=== PATIENT | male | born 1985 | race African-American/Black ===

== ENCOUNTER 2016-04-13 23:49 | Emergency (ER) | payer OTHER ==
--- NOTE | ~2016-04-13 | CR6 ---
[facility] A Service of [facility] & [facility] RADIOLOGY TEXT RESULTS PATIENT: KELLEY AKHTAR LOCATION: [facility] : 84 UNIT #: [id number] AGE: [address]: Arnol Prescott MD SEX: M ORDER DR: [id number] [facility] [address] [facility]. [place], [place] [address] [id number] E MR#: [id number] Acc #: [id number] NAME: KELLEY AKHTAR : 1985 SEX: M STUDY DATE/TIME: 04/13/2016 23:42 UNIT: [facility] ROOM: STUDY DESCRIPTION: CR Abdomen Portable Sng View Attending Physician: Arnol Prescott M.D. Ordering Physician: Ed Angel Cortes M.D. Primary Care Physician: Robin Bowen M.D. MEDICAL IMAGING REPORT This report is preliminary unless electronic signature is present EXAM AP view of the abdomen COMPARISON Acute abdominal series dated March 15, 2016. INDICATIONS 31-year-old male. Confirm percutaneous gastrojejunal tube placement. FINDINGS Contrast was injected via the patient's indwelling percutaneous tube. The tube terminates in expected location of the proximal jejunum, where contrast opacifies the proximal jejunum in the pelvis. No evidence of leak. No acute findings in the lung bases. No evidence of bowel obstruction. Suture material in the right lower quadrant of the abdomen. IMPRESSION Percutaneous GJ tube tip is within the proximal jejunum. No evidence of leak. No evidence of bowel obstruction. Dictated by... Teddy Bates M.D. THIS IS AN ELECTRONICALLY VERIFIED REPORT Teddy Bates M.D. at 04/15/2016 7:43 AM WILLIAM/patrick TD: 04/14/2016 03:24 JOB #: [id number] MEDICAL IMAGING REPORT COPY
[~2016-04-13 23:49] MED LIST: ACETAMINOPHEN PO; ACETAMINOPHEN PR; ATIVAN PO; ATIVAN0.5 MG PO; AUGMENTIN PO; BACTRIM DS TABL1 TA1 PO; CIPRO PO; DICLOFENAC PO; DIFLUCAN PO; DILAUDID PO; DILAUDID4 MG PO; DOCUSATE SODIU100 MG PO; DURAGESIC1 EAC1 TOP; DURAGESIC1 EACH TOP; DURAGESIC75 MCG EXT; FENTANYL1 EAC1 TD; FIORICET 50-321 EACH PO; FLEXERIL10 M1 PO; HYDROCODON-ACE1 EAC9 PO; IBUPROFEN600 MG; KETOPROFEN PO; LEVAQUIN750 MG PO; LORTAB 5/500 TA1 TA1 PO; MIRAPEX; MORPHINE SULFAT15 M3 PO; MULTIVITAMIN W-1 TAB PO; MYLANTA GAS80 M2 PO; NAMENDA10 MG; NAPROSYN-EC500 M1 PO; NAPROSYN250 M1 PO; NO MEDICATIONS; NORCO 7.5-3251 EACH PO; NORCO1 TAB 10/3 PO; OXYCODONE HCL E15 MG PO; OXYCODONE15 M1 PO; PERCOCET 7.5-31 EACH PO; PHENERGAN25 M1 PO; PREDNISONE PO; TOBREX5 ML OS; TYLENOL #3 PO; VOLTAREN50 MG PO; VOLTAREN75 MG PO; ZOFRAN ODT4 MG PO; ZYPREXA10 MG PO; [UNRECOGNIZED DRUG - OTHER]; [UNRECOGNIZED DRUG - OTHER] PO
== END 2016-04-14 01:35 | disposition home or self-care (01) ==
LOC: CED 23:49
DX: R10.9 Unspecified abdominal pain (principal); B37.9 Candidiasis, unspecified; I10 Essential (primary) hypertension
CPT/HCPCS: 74000; 99284

== ENCOUNTER 2016-05-14 22:48 | Emergency (ER) | payer OTHER ==
--- NOTE | ~2016-05-14 | CR4 ---
[facility] A Service of [facility] & [facility] RADIOLOGY TEXT RESULTS PATIENT: KELLEY AKHTAR LOCATION: [facility] : 84 UNIT #: [id number] AGE: [address]: Minerva Diaz MD SEX: M ORDER DR: [id number] [facility] [address] [place], [place] [address] [id number] E MR#: [id number] Acc #: [id number] NAME: KELLEY AKHTAR : 1985 SEX: M STUDY DATE/TIME: 05/14/2016 20:30 UNIT: [facility] ROOM: STUDY DESCRIPTION: CR Abdomen Flat Upright or Dec Attending Physician: Minerva Diaz M.D. Ordering Physician: Minerva Diaz M.D. Primary Care Physician: Robin Bowen M.D. MEDICAL IMAGING REPORT This report is preliminary unless electronic signature is present EXAM Supine upright radiographs of the abdomen and pelvis 05/14/2016 HISTORY Abdominal pain. TECHNIQUE Supine and upright radiographs of the abdomen and pelvis are presented. Comparison 04/13/2016. FINDINGS Lung bases are clear. The bowel gas pattern is normal. There is no evidence of ileus or obstruction. The study is degraded by what appears to be a clothing artifact overlying pelvis. There is what appears to be a gastrojejunal tube in place entering mid stomach with a jejunal component extending into the proximal jejunum. Similar positioning on prior study. On the upright radiograph, there is a ring-shaped metallic density measuring about 2.5 cm in diameter by about 6 mm in thickness superimposed over the left paracentral L4-L5 intervertebral disc space. It is not seen on the supine radiograph and is felt to be extrinsic to the patient. Please correlate clinically. Surgical clips over the abdomen unchanged. No free air. Dictated by... Aric Mcduffie M.D. THIS IS AN ELECTRONICALLY VERIFIED REPORT Aric Mcduffie M.D. at 05/17/2016 6:09 PM NADER/felipe TD: 05/15/2016 15:30 [facility] A Service of [facility] & [facility] RADIOLOGY TEXT RESULTS PATIENT: KELLEY AKHTAR LOCATION: [facility] #: [id number] : [birth year] UNIT #: [id number] AGE: [address]: Minerva Diaz MD SEX: M ORDER DR: JOB #: [id number] MEDICAL IMAGING REPORT Page 1 of 1 COPY
--- NOTE | ~2016-05-14 | CT71 ---
[facility] A Service of [facility] RADIOLOGY TEXT RESULTS PATIENT: KELLEY AKHTAR LOCATION: [facility] : 83 UNIT #: [id number] AGE: [address]: Minerva Diaz MD SEX: M ORDER DR: [id number] [address] [address] [id number] E MR#: [id number] Acc #: [id number] NAME: KELLEY AKHTAR : 1985 SEX: M STUDY DATE/TIME: 05/15/2016 0:31 UNIT: [facility] ROOM: STUDY DESCRIPTION: CT Head Wo Contrast Attending Physician: Minerva Diaz M.D. Ordering Physician: Minerva Diaz M.D. Primary Care Physician: Robin Bowen M.D. MEDICAL IMAGING REPORT This report is preliminary unless electronic signature is present EXAM CT head without contrast 05/15/2016 HISTORY 31-year-old male with headache for [address] head 12/12/2015 TECHNIQUE Routine unenhanced axial images performed through the brain. This CT exam was performed with one or more of the following radiation dose reduction techniques: automatic exposure control, adjustment of mA and/or kV according to patient size, and iterative reconstruction. FINDINGS No hemorrhage, acute infarction, mass lesion, or abnormal extraaxial fluid collection. No midline shift or focal mass effect. Ventricular system normal in size and configuration. No acute bony abnormality. Visualized paranasal sinuses and mastoid air cells are clear. IMPRESSION Negative unenhanced head CT. Dictated by... Kole Daly M.D. THIS IS AN ELECTRONICALLY VERIFIED REPORT Kole Daly M.D. at 05/16/2016 4:39 PM JoshuaKB/to TD: 05/15/2016 16:37 JOB #: [id number] [facility] A Service of [facility] RADIOLOGY TEXT RESULTS PATIENT: KELLEY AKHTAR LOCATION: [facility] : 83 UNIT #: [id number] AGE: [address]: Minerva Diaz MD SEX: M ORDER DR: MEDICAL IMAGING REPORT Page 1 of 1 COPY
[2016-05-14 21:22] LABS: BASOPHIL% 0.5 % (0-2.5); EOSINOPHIL# 0.2 X10e3 (0-0.7); EOSINOPHIL% 3.3 % (0.0-7.0); HEMATOCRIT 31.5 % (38.0-50.0); HEMOGLOBIN 10.3 gm/dL (13.0-16.0); LYMPHOCYTE# 0.9 X10e3 (1.0-3.5); LYMPHOCYTE% 15.4 % (17.0-45.0); MEAN CELL VOLUME 78.7 FL (83-96); MEAN CORPUSCULAR HEMOGLOBIN 25.7 PG (28-34); MEAN CORPUSCULAR HGB CONC 32.6 g/dL (30-36); MEAN PLATELET VOLUME 6.8 FL (6.5-11.5); MONOCYTE# 0.5 X10e3 (0-1.0); MONOCYTE% 8.1 % (3.0-12.0); NEUTROPHIL# 4.3 X10e3 (1.5-7.1); NEUTROPHIL% 72.7 % (40-75); PLATELET COUNT 457 X10e3 (140-420); RED CELL DISTRIBUTION WIDTH 16.4 % (11.0-15.5); WHITE BLOOD COUNT 5.9 X10e3 (4.0-10.5)
[2016-05-14 21:27] LABS: DIFF IND NO
[2016-05-14 21:48] LABS: ALBUMIN SERUM 3.2 g/dL (3.5-5.0); BILIRUBIN, DIRECT 0.1 mg/dL (0.0-0.2); BILIRUBIN,INDIRECT 0.2 mg/dL (0.0-0.9); BILIRUBIN,TOTAL 0.3 mg/dL (0.2-2.0); BUN/CREATININE RATIO 21.66; CREATININE SERUM 0.6 mg/dL (0.6-1.4); GLOM FILT RATE Estimated 154.3 mL/min (>60); PROTEIN TOTAL SERUM 7.4 g/dL (6.0-8.3)
[2016-05-15 00:23] LABS: URINE SOURCE CLEAN CATCH
[2016-05-15 00:30] LABS: URINE APPEARANCE CLOUDY; URINE BILIRUBIN NEG (NEG); URINE BLOOD NEG (NEG); URINE COLOR DK YELLOW; URINE GLUCOSE NEG (NEG); URINE KETONE TRACE (NEG); URINE LEUKOCYTE ESTERASE 1+ (NEG); URINE NITRATE NEG (NEG); URINE PH 5.5 (5-8); URINE PROTEIN TRACE (NEG); URINE SPECIFIC GRAVITY 1.027 (1.003-1.035)
[2016-05-15 00:37] LABS: CULTURE INDICATED? YES; URBCS1 AUWI 0-2 /[HPF] (0-2); URINE BACTERIA AUWI NEG (NEGATIVE); URINE SQUAMOUS EPITHELIAL CELL OCC /[HPF]
[2016-05-15 00:47] LABS: AMPHETAMINE POS (NEG); BARBITURATES NEG (NEG); BENZODIAZEPINES NEG (NEG); COCAINE NEG (NEG); MARIJUANA NEG (NEG); OPIATES POS (NEG); TRICYCLIC ANTIDEPRESSANTS NEG (NEG); U METHADONE NEG (NEG)
== END 2016-05-15 02:10 | disposition home or self-care (01) ==
LOC: CED 22:48
PROVIDERS: Student in an Organized Health Care Education/Training Program
DX: G89.29 Other chronic pain (principal); R10.9 Unspecified abdominal pain; Z88.5 Allergy status to narcotic agent
CPT/HCPCS: 36415; 70450; 74020; 80048; 80076; 80307; 81003; 82150; 83690; 85025; 87086; 96361; 96374; 96375; 99284; J1170; J2550

== ENCOUNTER 2016-06-02 03:42 | Inpatient (IN) | payer OTHER ==
--- NOTE | ~2016-06-02 | DS ---
Unit #: [id number] #: [id number] Patient: KELLEY AKHTAR [id number] [address] [address] [id number] I MR#: [id number] NAME: KELLEY AKHTAR ROOM: 229 Age: 31 Sex: M Admission Date: 06/02/2016 : 1985 Discharge Date: 06/04/2016 Attending Physician: Ines Vazquez M.D. Primary Care Physician: Robin Bowen M.D. DISCHARGE SUMMARY FINAL DIAGNOSES 1. Intractable nausea and vomiting, which is improved. 2. Advanced metastatic colon cancer status post chemo and radiation therapy with persistent disease and progression. 3. Chronic anemia. 4. Abdominal pain secondary to abdominal malignancy,. 5. Gastric outlet partial obstruction status post percutaneous endoscopic gastrotomy placement. DISCHARGE MEDICATIONS 1. Zyprexa 10 mg at bedtime. 2. Oxycodone 15 mg q.4 p.r.n. 3. Fentanyl patch 150 mcg topically q.72 hours. 4. Colace 100 mg b.i.d. 5. Phenergan 25 mg q.4 p.r.n. 6. Continue tube feeds. Hypomagnesemia. Hypokalemia. CEA level is 6.5. Ferritin level 187. RADIOLOGICAL STUDIES DONE DURING HOSPITALIZATION CT scan of the abdomen and pelvis that shows G-tube is present, small amount of fluid around the gallbladder which otherwise appears normal. Very poor evaluation of the bowel. CONSULTATIONS DURING HOSPITALIZATION 1. Dr. Corona from [facility]. 2. Dr. Wu Blake, GI Services. HOSPITAL COURSE The patient was admitted to the hospital with intractable nausea, vomiting. He does have metastatic advanced colon cancer. He had a PEG tube placed in [facility] because of gastric outlet partial obstruction. He was admitted to the hospital. IV pain management was done. The patient's Duragesic patch has been increased to 150 mcg. He is feeling somewhat better. Dr. Corona was consulted. As per Dr. Corona, the patient can be discharged home to follow up on Monday for possible Keytruda treatment. Dr. Wu Blake was also consulted. He advised to continue tube feeds. As per Dr. Blake, the patient needs symptomatic treatment. Potassium was replaced. The patient will be discharged home. Prescription for Fentanyl patch is being written. Plan of care discussed with patient. VITAL SIGNS ON DISCHARGE: Blood pressure 124/68. Respiratory rate 18. Unit #: [id number] #: [id number] Patient: KELLEY AKHTAR Pulse 91. Temperature 98.6. CHEST: Fair air entry, decreased at the bases. CARDIOVASCULAR: Regular rhythm. ABDOMEN: Soft. Tenderness is present. DISCHARGE INSTRUCTIONS 1. The patient is being discharged home. 2. Prescription for Duragesic patch is being written. 3. Follow up with Oncology on Monday for possible treatment. 4. Follow up with primary care provider in one week. 5. Potassium and magnesium level to be done in three to four days. 1. Dictated by... Ines Vazquez M.D. HIMA/melinda TD: 06/05/2016 18:36 JOB #: [id number] DISCHARGE SUMMARY Page 1 of 1 X Ines Vazquez MD X DISCHARGE SUMMARY
--- NOTE | ~2016-06-02 | A ---
[facility] Nutrition Therapy DATE: 06/03/16 Patient: KELLEY AKHTAR Physician: VIV Address: [address] Room/Bed: [address] [place] [address], Zip: [place] [address] Admit Date: 06/02/16 Date of : 84 Height: 6 3 Weight: 130 58.96 NUTRITIONAL ASSESSMENT: REASON: LOW BMI + ENTERAL NUTRITION SUPPORT ASSESSMENT PT IS 31 Y.O. MALE ADMITTED FOR ABD PAIN, VOMITING BLOOD, N/V PMH: STAGE IV COLON CANCER S/P (R) HEMICOLECTOMY, CHEMOTHERAPY & RADIATION, ANEMIA Anthropometrics: 6'3", WT: 130# (59 KG), BMI: 16.2, 66%IBW Labs: BUN: 8, ALB: 2.6 Meds: PROTONIX, COLACE, PHENERGAN, KCL, NACL I/O & Bowel function: 3400/1000 Skin Integrity: NO KNOWN SKIN ISSUES Estimated Nutrition Needs: 4741-0962 KCAL (35-40 KCAL/KG BW) 71-106 G PRO (1.2-1.8 G PRO/KG BW) FLUIDS CONSISTENT W/KCAL NEEDS OR MANAGE PER MD Assessment: CHART REVIEWED AND EVENTS NOTED. PT SEEN FOR LOW BMI + ENTERAL NUTRITION SUPPORT. PT REPORTS FAIR PO INTAKE AND APPETITE, ADDS THAT HIS PO INTAKE IS INCONSISTENT. PT REPORTS WEIGHT LOSS SINCE LAST SEPTEMBER 2015-NOTES UBW IS ~200#. PT WEIGHED ~167# IN DECEMBER 2015, ~149# IN FEBRUARY 2016 AND 145# IN APRIL 2016. THIS RD STRESSED THE IMPORTANCE OF ADEQUATE PROTEIN AND KCAL INTAKE AND WEIGHT GAIN. PT AGREED, REPORTING LIKING ENSURE CLEAR WELL REGULAR ENSURE SHAKES. RD ALSO ENCOURAGED SMALL, FREQUENT MEALS. OF NOTE, PT RECEIVING CLEAR LIQUID DIET + RECEIVING ALTERNATIVE NUTRITION SUPPORT OF JEVITY 1.2 @ 45 ML/HR VIA PEG. PT AND FAMILY REPORTED NO DIET QUESTIONS AT THIS TIME. RD TO FOLLOW. SEE RECOMMENDATIONS BELOW. Dx: MALNUTRITION R/T PMH, CURRENT CONDITION AEB AEB LOW BMI OF 16.2, 66%IBW, ~70# WEIGHT LOSS NOTED SINCE SEPTEMBER 2015. Intervention: 1. CLEAR LIQUID DIET 2. ENSURE CLEAR TID 3. PEG-ENTERAL NUTRITION SUPPORT Monitoring, Evaluation and Goals: 1. ENTERAL NUTRITION; TOLERATE ~80-100% ESTIMATED NUTRIENT NEEDS 2. ORAL INTAKE; TOLERATE >50% OF MEALS AND SUPPLEMENTS W/NO C/O N/V/D 3. WEIGHTS; PROMOTE WEIGHT GAIN; PREVENT FURTHER WEIGHT LOSS [facility] Nutrition Therapy DATE: 06/03/16 Patient: KELLEY AKHTAR Physician: VIV Address: [address] Room/Bed: [address] [place] [address], Zip: [place] [address] Admit Date: 06/02/16 Date of : [birth year] Height: 6 3 Weight: 130 58.96 4. GI; PROMOTE REGULAR GI FUNCTION MONITOR: -PO INTAKE/APPETITE -SUPPLEMENT INTAKE -ENTERAL NUTRITION? -WEIGHTS Recommendations: 1. ORDER ENSURE CLEAR TID W/MEALS 2. ONCE PT ABLE TO TOLERATE PO INTAKE, ADVANCE DIET TO REGULAR + 6 SMALL MEALS 3. PLEASE OBTAIN DAILY WEIGHTS FOR MONITORING PURPOSES 4. IF PT TO CONTINUE TO HAVE MINIMAL PO INTAKE, RECOMMEND TO CHANGE CURRENT ENTERAL NUTRITION SUPPORT TO JEVITY 1.5 @ 20 ML/HR, ADVANCE 10 ML q 8 HOURS TO GOAL RATE OF 60 ML/HR -PROVIDES 2160 KCAL, 92 G PRO, 1094 ML FREE H20 ADD FREE H20 FLUSHES PER MD RD WILL F/U PER PROTOCOL PT IS MOD/SEVERELY COMPROMISED Respectfully, DEMAR REYES MS, RD, LD [facility] cc: client file
--- NOTE | ~2016-06-02 | HP ---
Unit #: [id number] #: [id number] Patient: KELLEY HERNANDEZ [id number] [place], [place] [address] [id number] I MR#: [id number] NAME: KELLEY HERNANDEZ ROOM: 229 Age: 31 Sex: M Admission Date: 06/02/2016 : 1985 Attending Physician: Ines Vazquez M.D. Primary Care Physician: Robin Bowen M.D. HISTORY AND PHYSICAL CHIEF COMPLAINT Intractable nausea and vomiting. HISTORY OF PRESENTING ILLNESS A 31-year-old -Australian male who is very well known to me from multiple admissions has a history of advanced metastatic colon cancer stage IV, status post chemo and radiation therapy with persistent disease and progression, has also received one cycle of Keytruda and he is followed by [facility]. Patient was last admitted in the hospital in March 2016. At that time he was transferred to [facility]. Per patient he had pain blocks done and some surgical procedure done and was discharged home. He went to [facility] just two or three days ago and according to him nothing was done so he went home and came to [facility] and was admitted for intractable nausea and vomiting. According to patient he is not able to eat anything because of vomiting and he thinks that he saw some blood in the vomit, also complaining of abdominal pain which is diffuse abdominal pain. Level of pain is 7-8/10. He does not complain of diarrhea. Actually he does have chronic constipation. Patient is kind of a poor historian and does not really want to communicate much at this time. PAST MEDICAL HISTORY 1. History of advanced metastatic colon cancer status post chemo and radiation therapy with persistent disease and progression. 2. Chronic anemia. 3. Abdominal pain. PAST SURGICAL HISTORY 1. History of hemicolectomy. 2. History of IV port placement and then later removal. 3. History of PEG tube placement which was in March 2016. ALLERGIES No known drug allergies. SOCIAL HISTORY Patient has no history of alcohol abuse or drug abuse. FAMILY HISTORY Unremarkable. HOME MEDICATIONS Unit #: [id number] #: [id number] Patient: KELLEY HERNANDEZ 1. Duragesic patch q.72 h. 2. Phenergan 25 mg q.4 h. p.r.n. 3. Roxicodone 15 mg q.4 h. p.r.n. 4. Olanzapine 10 mg q.h.s. 5. Colace 100 mg b.i.d. REVIEW OF SYMPTOMS As per history of presenting illness. PHYSICAL EXAMINATION GENERAL APPEARANCE: Patient is lying in bed, does not seem to be in any respiratory distress. VITAL SIGNS: Blood pressure is 146/96. Respiratory rate 18. Pulse is 57. Temperature 98.9. Oxygen saturation is 100%. HEENT: Head is normocephalic. Eye movements are normal. Pale conjunctivae. NECK: Neck is supple. CHEST: Has fair air entry, decreased at the bases. CVS: S1, S2 positive, regular rhythm. ABDOMEN: Soft. Tenderness diffuse is present. PEG tube is in place. EXTREMITIES: Negative edema. Pulses are palpable. POST OFFICE MARKUP CLERK: Patient is awake, alert oriented x3. Does not seem to have any focal neurological deficit. DIAGNOSTIC STUDIES LABORATORY WORKUP: WBC 6.1, hemoglobin 10.4, hematocrit 32.4 and platelet count of 433, PT and INR 12.5 and 1.2, sodium 138, potassium 2.8, chloride 93, BUN 16, creatinine 1.0. Liver enzymes are stable; lipase is 22, in normal range. Troponin is less than 0.05. Urinalysis was done which shows trace leukocyte esterase, negative bacteria. Magnesium is 2.2. IMAGING: Study done during ER was CT scan of the abdomen and pelvis which shows G-tube is present, small amount of fluid around the gallbladder which otherwise appears normal. Nothing else acute seen. ASSESSMENT Patient is being admitted to med/surg unit with: 1. Intractable nausea and vomiting. 2. Possible hematemesis. 3. Advanced metastatic colon cancer. 4. Generalized abdominal pain secondary to above. 5. Chronic anemia. PLAN Plan is admit to med/surg unit. Dr. Corona has been consulted. Pain management will be done as per his recommendation. IV Zofran 4 mg q.6 h. p.r.n. is being started for nausea/vomiting. Dr. Wu Blake has been consulted. Patient will have EGD done in the morning. Labs will be repeated again tomorrow morning. IV fluids are going to be started. Patient does have hypokalemia. Potassium will be replaced as per protocol and magnesium level will be obtained and continue on replacement. Plan of care discussed with patient. Will try to get discharge summary from [facility] from March 2016. I did try to call the patient's but she is not receiving any call at this time. I informed Mr. Hernandez also. I will personally talk to her whenever she comes to hospital to visit him. I did discuss about hospice care also. He will talk to his and then decide. Unit #: [id number] #: [id number] Patient: KELLEY HERNANDEZ Dictated by Jefferson Weber/seema TD: 06/02/2016 18:28 JOB #: [id number] HISTORY AND PHYSICAL Page 1 of 1 X Ines Vazquez MD X HISTORY AND PHYSICAL
--- NOTE | ~2016-06-02 | CO ---
Unit #: [id number] #: [id number] Patient: KELLEY HERNANDEZ [id number] [address] [place], [place] [address] [id number] I MR#: [id number] NAME: KELLEY HERNANDEZ ROOM: 229 Age: 31 Sex: M Admission Date: 06/02/2016 : 1985 Attending Physician: Ines Vazquez M.D. Primary Care Physician: Robin Bowen M.D. Consultation Date: 06/02/2016 CONSULTATION REPORT PRIMARY CARE PHYSICIAN Robin Bowen M.D. REASON FOR CONSULTATION Nausea, vomiting, and hematemesis. HISTORY OF PRESENT ILLNESS Mr. Hernandez is an unfortunate 31-year-old gentleman, who has advanced metastatic colon cancer, which is status post right hemicolectomy. Subsequently, the patient was found to have metastatic cancer with masses in the abdomen with partial small bowel obstruction and extrinsic compression on the stomach gastric outlet. The patient was seen by multiple doctors in [facility] as well as by [facility] and clearly has significant problems. He had one cycle of Keytruda at the [facility], but not on any chemotherapy at the present time. Somewhere along the line, he is being treated at [facility] and had a PEG placed. I suspect this is primarily for venting rather than feeding. The patient has a lot of diffuse abdominal pain and seems to be quite depressed and not very engaging. PAST MEDICAL HISTORY Significant for original diagnosis of cecal cancer diagnosed in 09/2015 when he was found to have extensive tumor involving the transverse colon, duodenum, and retroperitoneal structures. PAST SURGICAL HISTORY Included a MediPort placement, hemicolectomy, and a PEG placement. FAMILY HISTORY No significant family history. SOCIAL HISTORY Does not smoke or drink alcohol. and lives at home with his . MEDICATIONS At home included Duragesic, Phenergan, Roxicodone, olanzapine, and Colace. ALLERGIES He is allergic to oxycodone, morphine, and Zofran. REVIEW OF SYSTEMS Detailed review of organ system is significant for fatigue and weakness, nausea, vomiting, possibly hematemesis. Rest of the review of organ Unit #: [id number] #: [id number] Patient: HERNANDEZ,KELLEY DEWANE systems is unremarkable. PHYSICAL EXAMINATION GENERAL: The patient appears quite cachectic and emaciated and depressed and curled up in bed. He does not open his eyes while he is talking and is in lot of pain. VITAL SIGNS: Stable with a temperature of 98.7, pulse is 57 per minute and regular, respiratory rate is 18, blood pressure 146/96. He weighs 129 pounds. Baseline weight used to be about 160 pounds. He has lost more than 34 pounds in the interim. HEENT: He has [id number] pallor. There being no icterus, lymphadenopathy, or peripheral edema. CARDIOVASCULAR: Normal heart sounds. No murmurs on auscultation. LUNGS: Reveals normal breath sounds. Good air entry. ABDOMEN: Shows multiple mass especially in the right side of the abdomen and emaciation. DIAGNOSTIC STUDIES LABORATORY RESULTS: Shows a hemoglobin of 10.4, which is same as his baseline hemoglobin; MCV 78; white count is normal at 6000; platelet count is 433. INR is 1.2. Serum chemistry is significant for a potassium of 2.8 and albumin of 3.2. LFTs are normal. The patient does have significant iron deficiency. CLINICAL IMPRESSION The patient with advanced metastatic colon cancer. I see little point in doing endoscopic workup as his hemoglobin is unchanged from baseline. The patient needs to be spoken about terminal hospice care and be prepared for the latter as any intervention is unlikely to be helpful, in fact may compound the problem. This was discussed with the patient, who clearly resisted it, and also with Dr. Vazquez. We will monitor his hemoglobin and hematocrit over the next 24 hours. Also, see if he can tolerate tube feeds in the interim. Also, discussion need to be held with his regarding possibility of terminal care or hospice care. Thank you for asking me to see this unfortunate gentleman. I appreciate the consult. Dictated by... Jefferson Woodward TD: 06/03/2016 01:25 JOB #: [id number] CONSULTATION REPORT Page 1 of 1 X Wu Blake MD CONSULTATION REPORT
--- NOTE | ~2016-06-02 | MAL ---
[facility] Nutrition Therapy DATE: 06/03/16 Patient: KELLEY QUINTEROLILLIANGRISEL HERMILO Physician: VIV Address: [address] [facility] Room/Bed: [address] [place] [address], Zip: [place] [address] Admit Date: 06/02/16 Date of : [birth year] Height: 6 3 Weight: 130 58.96 PHYSICAL MALNUTRITION ASSESSMENT Energy Intake, Chronic Illness Moderately reduced: <75% needs for >/=1 month Severely reduced: </=50% needs for >/=1 month Energy Intake Comment: PT REPORTS FAIR PO INTAKE AND APPETITE, NOTES HIS PO INTAKE IS "INCONSISTENT", ADDS HIS APPETITE "GOES UP AND DOWN". Weight Loss, Chronic Illness Severe: >5% past 1 month Severe: >7.5% past 3 months Severe: >10% past 6 months Severe: >20% past 1 year Weight Loss, Comment: PT REPORTS LOSING ~70# SINCE AUGUST/SEPTEMBER 2015 (8-9 MONTHS)/35% SEVERE WEIGHT LOSS. PER [employer], 167# WEIGHT NOTED IN DECEMBER 2015; 149# IN FEBRUARY 2016; ~145# IN APRIL 2016 Physical Findings Body Fat and Muscle Mass Moderate: (suggested) some loss of subqutaneous fat and/or muscle mass Severe: (obvious) significant muscle wasting and/or loss of subcutaneous fat Physical Findings Comment: PER RD OBSERVATION, SLIGHT DEPRESSION OF TEMPORAL MUSCLE; SOME PROTRUSION OF ACROMION PROCESS, CLAVICLE AND SCAPULA; LOSS OF MUSCLE DEFINITION BICEPS/TRICEPS WELL CALVES. DARK CIRLCES AROUND EYES (HOLLOW IN APPEARANCE); SOMEWHAT APPARENT RIBS AND DRY SKIN/MOUTH AND NAILS OBSERVED. Dietitian Malnutrition Assessment Score: MOD/SEVERELY COMPROMISED Malnutrition Etiology Summary: Chronic illness moderate Chronic illness severe Malnutrition Survey Comment: SEE RD ASSESSMENT 06/03/2016 Respectfully, DEMAR REYES MS, RD, LD [facility] Nutrition Therapy DATE: 06/03/16 Patient: KELLEY MARVIN AKHTAR Physician: VIV Address: [address] [place] [address] Room/Bed: [address] [place] [address], Zip: [place] [address] Admit Date: 06/02/16 Date of : [birth year] Height: 6 3 Weight: 130 58.96 [facility] cc: client file
--- NOTE | ~2016-06-02 | CT2 ---
[facility] A Service of [facility] RADIOLOGY TEXT RESULTS PATIENT: KELLEY AKHTAR LOCATION: A 229-01 : [birth year] UNIT #: [id number] AGE: [address]: Ines Vazquez MD SEX: M ORDER DR: [id number] [facility] [address] [facility]. [place], [place] [address] [id number] MR#: [id number] Acc #: [id number] NAME: KELLEY AKHTAR : 1985 SEX: M STUDY DATE/TIME: 06/02/2016 4:43 UNIT: SANCHEZ ROOM: STUDY DESCRIPTION: CT Abd and Pelv W Cont Attending Physician: Robert Londono D.O. Ordering Physician: Robert Londono D.O. Primary Care Physician: Robin Bowen M.D. MEDICAL IMAGING REPORT This report is preliminary unless electronic signature is present EXAM CT abdomen and pelvis with contrast INDICATION Abdominal pain, vomiting blood for 3 days. Right-sided pain. COMPARISON 03/04/2016. TECHNIQUE The patient was given 100 mL of Isovue 370 and axial 5 mm images were obtained through the abdomen and pelvis. This CT examination was performed with one or more of the following radiation dose reduction techniques: automatic exposure control, adjustment of mA and/or kV according to patient size, and iterative reconstruction. FINDINGS The lung bases are clear. There is a small amount of fluid around the gallbladder. The liver appears normal. The gallbladder appears normal otherwise. The spleen, pancreas, adrenal glands and kidneys are normal. There is a G-tube in the stomach. The patient has very little body fat and there is no oral contrast. The unopacified bowel appears normal. The bladder and prostate gland are normal. The bones are unremarkable. IMPRESSION 1. A G-tube is present and there is also an enteric tube passing through the G-tube down into the jejunum. 2. There is a small amount of fluid around the gallbladder which otherwise appears normal. 3. Very poor evaluation of the bowel due to lack of fat and lack of oral contrast. [facility] A Service of [facility] RADIOLOGY TEXT RESULTS PATIENT: KELLEY AKHTAR LOCATION: [facility] : [birth year] UNIT #: [id number] AGE: [address]: Ines Vazquez MD SEX: M ORDER DR: Dictated by... Adryan Cornejo M.D. THIS IS AN ELECTRONICALLY VERIFIED REPORT Adryan Cornejo M.D. at 06/02/2016 2:15 PM MARY/ana TD: 06/02/2016 06:13 JOB #: [id number] MEDICAL IMAGING REPORT Page 1 of 1 COPY
[2016-06-02 04:00] LABS: BASOPHIL% 0.4 % (0-2.5); EOSINOPHIL# 0.1 X10e3 (0-0.7); EOSINOPHIL% 1.3 % (0.0-7.0); HEMATOCRIT 32.4 % (38.0-50.0); HEMOGLOBIN 10.4 gm/dL (13.0-16.0); LYMPHOCYTE# 0.9 X10e3 (1.0-3.5); LYMPHOCYTE% 14.3 % (17.0-45.0); MEAN CELL VOLUME 78.2 FL (83-96); MEAN CORPUSCULAR HEMOGLOBIN 25.1 PG (28-34); MEAN CORPUSCULAR HGB CONC 32.1 g/dL (30-36); MEAN PLATELET VOLUME 7.3 FL (6.5-11.5); MONOCYTE# 0.5 X10e3 (0-1.0); MONOCYTE% 7.9 % (3.0-12.0); NEUTROPHIL# 4.7 X10e3 (1.5-7.1); NEUTROPHIL% 76.1 % (40-75); PLATELET COUNT 433 X10e3 (140-420); RED BLOOD COUNT 4.14 X10e (3.90-5.60); RED CELL DISTRIBUTION WIDTH 16.6 % (11.0-15.5); WHITE BLOOD COUNT 6.1 X10e3 (4.0-10.5)
[2016-06-02 04:01] LABS: DIFF IND NO
[2016-06-02 04:14] LABS: INR 1.2; PROTHROMBIN TIME (PATIENT) 12.5 SECONDS (9.6-11.5)
[2016-06-02 04:31] LABS: ALBUMIN SERUM 3.2 g/dL (3.5-5.0); BILIRUBIN, DIRECT 0.1 mg/dL (0.0-0.2); BILIRUBIN,INDIRECT 0.6 mg/dL (0.0-0.9); BILIRUBIN,TOTAL 0.7 mg/dL (0.2-2.0); CALCIUM SERUM 8.8 mg/dL (8.4-10.2); GLOM FILT RATE Estimated 114.9 mL/min (>60); PROTEIN TOTAL SERUM 7.5 g/dL (6.0-8.3)
[2016-06-02 04:32] LABS: POTASSIUM 2.8 mmol/L (3.5-5.1)
[2016-06-02] MEDS ORDERED: PHENERGAN25 M1 PO (05:25)
[2016-06-02] MEDS ORDERED: DURAGESIC1 EAC1 TD (05:25)
[2016-06-02] MEDS ORDERED: OLANZAPINE10 MG PO (05:26)
[2016-06-02] MEDS ORDERED: ROXICODONE15 MG PO (05:26)
[2016-06-02] MEDS ORDERED: DOCUSATE SODIU100 MG PO (05:26)
[2016-06-02 05:27] LABS: POC - CKMB <1.0 ng/mL (0.0-7.9); POC - TROPONIN <0.05 ng/mL (<=0.05)
[2016-06-02 06:47] LABS: URINE SOURCE CLEAN CATCH
[2016-06-02 06:55] LABS: URINE APPEARANCE CLEAR; URINE BILIRUBIN NEG (NEG); URINE BLOOD NEG (NEG); URINE COLOR DK YELLOW; URINE GLUCOSE NEG (NEG); URINE KETONE NEG (NEG); URINE LEUKOCYTE ESTERASE TRACE (NEG); URINE NITRATE NEG (NEG); URINE PH 7.5 (5-8); URINE PROTEIN TRACE (NEG); URINE SPECIFIC GRAVITY 1.045 (1.003-1.035)
[2016-06-02 06:58] LABS: URBCS1 AUWI 0-2 /[HPF] (0-2); URINE BACTERIA AUWI NEG (NEGATIVE); URINE SQUAMOUS EPITHELIAL CELL OCC /[HPF]
[2016-06-02 07:02] LABS: CULTURE INDICATED? NO
[2016-06-03 07:09] LABS: HEMATOCRIT 30.7 % (38.0-50.0); HEMOGLOBIN 9.7 gm/dL (13.0-16.0); MEAN CELL VOLUME 78.7 FL (83-96); MEAN CORPUSCULAR HEMOGLOBIN 24.8 PG (28-34); MEAN CORPUSCULAR HGB CONC 31.5 g/dL (30-36); MEAN PLATELET VOLUME 7.7 FL (6.5-11.5); RED BLOOD COUNT 3.9 X10e (3.90-5.60); RED CELL DISTRIBUTION WIDTH 16.3 % (11.0-15.5); WHITE BLOOD COUNT 6.2 X10e3 (4.0-10.5)
[2016-06-03 07:48] LABS: ALBUMIN SERUM 2.6 g/dL (3.5-5.0); BILIRUBIN,TOTAL 0.4 mg/dL (0.2-2.0); BUN/CREATININE RATIO 11.42; CALCIUM SERUM 8.5 mg/dL (8.4-10.2); CREATININE SERUM 0.7 mg/dL (0.6-1.4); GLOM FILT RATE Estimated 144.8 mL/min (>60); MAGNESIUM 1.7 mg/dL (1.6-3.0); POTASSIUM 3.9 mmol/L (3.5-5.1); PROTEIN TOTAL SERUM 6.2 g/dL (6.0-8.3)
[2016-06-04 05:56] LABS: HEMATOCRIT 27.4 % (38.0-50.0); HEMOGLOBIN 8.7 gm/dL (13.0-16.0); MEAN CELL VOLUME 79.2 FL (83-96); MEAN CORPUSCULAR HEMOGLOBIN 25.1 PG (28-34); MEAN CORPUSCULAR HGB CONC 31.7 g/dL (30-36); MEAN PLATELET VOLUME 7.6 FL (6.5-11.5); RED BLOOD COUNT 3.46 X10e (3.90-5.60); RED CELL DISTRIBUTION WIDTH 16.3 % (11.0-15.5); WHITE BLOOD COUNT 6.7 X10e3 (4.0-10.5)
[2016-06-04] MEDS ORDERED: DURAGESIC1 EAC1 TD (14:45)
== END 2016-06-04 16:39 | disposition home or self-care (01) | DRG 375 ==
LOC: CED 03:42 → CEDOF 07:24 → C2A 11:59
PROVIDERS: Emergency Medicine; Hospitalist; Internal Medicine Medical Oncology; Physician Assistant Medical
DX: C78.89 Secondary malignant neoplasm of other digestive organs (principal); K92.2 Gastrointestinal hemorrhage, unspecified; C18.9 Malignant neoplasm of colon, unspecified; K31.1 Adult hypertrophic pyloric stenosis; E86.0 Dehydration; E83.42 Hypomagnesemia; E87.6 Hypokalemia; D64.9 Anemia, unspecified; R11.2 Nausea with vomiting, unspecified; Z90.49 Acquired absence of other specified parts of digestive tract; Z92.21 Personal history of antineoplastic chemotherapy; Z92.3 Personal history of irradiation
CPT/HCPCS: 36415; 74177; 80048; 80053; 80076; 81003; 82378; 82553; 82728; 83540; 83550; 83690; 83735; 84484; 85025; 85027; 85610; 85730; 86850; 86900; 86901; 96361; 96374; 96375; 99285; C9113; J1170; J2550; J3475; Q9967

== ENCOUNTER 2016-06-11 18:52 | Inpatient (IN) | payer OTHER ==
--- NOTE | ~2016-06-11 | HP ---
Unit #: [id number] #: [id number] Patient: KELLEY AKHTAR [id number] [address] [place], [place] [address] [id number] MR#: [id number] NAME: KELLEY AKHTAR ROOM: 216 Age: 31 Sex: M Admission Date: 06/11/2016 : 1985 Attending Physician: Ines Vazquez M.D. Primary Care Physician: Robin Bowen M.D. HISTORY AND PHYSICAL HISTORY OF PRESENT ILLNESS The patient is a 31-year-old black male with a history of stage IV adenocarcinoma of the colon resected in 2016 and eventually developed a gastric outlet obstruction partially and had what I guess is a J-tube placed. He presented a week ago with persistent nausea and vomiting and was discharged home, only to re-present with the same symptoms today, as well as abdominal pain. Labs were fairly unremarkable except for anemia which is apparently chronic. The CMP, amylase and lipase were all normal except for an alkaline phosphatase of 93. He is still having bowel movements and has not thrown up since he has been admitted to the hospital. He has already been seen by Surgery and started on Protonix, Reglan, and p.r.n. Zofran. ALLERGIES Zofran and morphine, as well as OxyContin. MEDICATIONS PRIOR TO ADMISSION 1. Phenergan 25 mg p.o. q.4 hours p.r.n. 2. Oxycodone dose unknown q.4 hours. 3. Olanzapine 10 mg at bedtime. 4. Colace 100 mg b.i.d. 5. Fentanyl patch 150 mg q.72 hours. PAST SURGICAL HISTORY 1. Left ear surgery. 2. Colon resection. 3. Gastrostomy tube and port placement and eventual removal. PAST MEDICAL HISTORY 1. Hypertension. 2. Colon cancer stage IV. 3. Gastrostomy tube placement. 4. Anemia. SOCIAL HISTORY Smokes less than a half a pack a day. No alcohol or street drug use. FAMILY HISTORY Noncontributory. PHYSICAL EXAMINATION GENERAL: Awake, alert, oriented x3, and in no acute distress. VITAL SIGNS: Afebrile, pulse 79, respirations 10, and blood pressure 139/105. Unit #: [id number] #: [id number] Patient: KELLEY AKHTAR HEENT: Unremarkable. NECK: Supple without bruits, adenopathy, or thyromegaly. CHEST: Clear to auscultation. HEART: Regular rate and rhythm without any murmurs, rubs, or gallops. ABDOMEN: Soft, nondistended, and diffusely tender. Positive bowel sounds. EXTREMITIES: No clubbing, cyanosis, or edema. DIAGNOSTIC STUDIES LABORATORY: CBC normal except for a hemoglobin of 10.5 and platelet count of 498,000. CMP within normal limits except for an alkaline phosphatase of 93. Amylase and lipase are normal. IMAGING: Patient had a CT scan of the abdomen and pelvis last admission that showed G-tube present with an enteric tube passing through the G-tube down into the jejunum. There is a small amount of fluid around the gallbladder which otherwise appears normal. Poor visualization of the bowel due to lack of fat and lack of oral contrast. Liver appeared to be normal. IMPRESSION 1. Persistent nausea and vomiting. 2. Status post jejunostomy tube. 3. History of partial gastric outlet obstruction. 4. Chronic anemia. 5. Stage IV adenocarcinoma of the colon. 6. Tobacco use. PLAN N.p.o., IV fluids, IV pain medications, IV Reglan, and IV proton pump inhibitors. Will try to feed if he does not throw up in the next 24 hours. Otherwise, he will need further x-rays and/or an EGD. Dictated by Jefferson Singh/patrizia TD: 06/12/2016 16:22 JOB #: [id number] HISTORY AND PHYSICAL Page 1 of 1 X Kunal Zuniga MD HISTORY AND PHYSICAL
--- NOTE | ~2016-06-11 | HP ---
Unit #: [id number] #: [id number] Patient: KELLEY AKHTAR [id number] [address] [place], [place] [address] [id number] I MR#: [id number] NAME: KELLEY AKHTAR ROOM: 216 Age: 31 Sex: M Admission Date: 06/11/2016 : 1985 Attending Physician: Ines Vazquez M.D. Primary Care Physician: Robin Bowen M.D. HISTORY AND PHYSICAL REASON FOR EVALUATION Progressive disease, please evaluate. HISTORY OF PRESENT ILLNESS The patient is a 31-year-old gentleman, well known to us for over a year, history of colon cancer status post resection with residual disease. He was initially treated with 5FU continuous infusion and radiation. He then subsequently went to [facility], where he was evaluated and treated with Ketruda. He presents repeatedly with nausea, vomiting, intractable abdominal pain not relieved by the current pain medications and overall miserable. Today on questioning him, he states that the pain is not controlled well. He is unable to rest, unable to keep food or fluids down. G tube feeding is not helping him much. Overall mainly pain. PAST MEDICAL HISTORY 1. Chronic abdominal pain, recurrent, chronic presentation with nausea and vomiting, dehydration, malnutrition. 2. History of metastatic colon cancer, locally advanced, large mass with several CTs showing progressive disease. PAST SURGICAL HISTORY 1. Hemicolectomy. 2. G tube placement. FAMILY HISTORY Negative for cluster of cancers. ALLERGIES No known drug allergies. CHRONIC MEDICATIONS Multiple but mainly 1. Duragesic 15 mcg. 2. Dilaudid. 3. Phenergan. 4. Roxicodone. 5. Colace. 6. Olanzapine. REVIEW OF SYSTEMS He is stating himself that he is not doing well. The pain is not controlled. He is unable to rest. Unable to tolerate the feeds. Abdominal pain, nausea, vomiting, ill health and failure to thrive. Unit #: [id number] #: [id number] Patient: KELLEY AKHTAR Otherwise six or eight systems were within normal limits. PHYSICAL EXAMINATION GENERAL: Extremely cachectic gentleman who appears to be in pain. No supraclavicular, axillary or groin nodes. LUNGS: Crackles. No rales. HEART: Distant S1 and S2. ABDOMEN: Scaphoid. G tube in place. Diffuse tenderness. NEUROLOGIC: PROOF TECHNICIAN difficult to evaluate in detail because the patient is having so much discomfort. He does move upper and lower extremities. There is atrophy of muscles all over. Very thin chest wall remaining. RECTAL: Not done. DIAGNOSTIC STUDIES LABORATORY: CBC, hemoglobin 10.5, hematocrit 32.9, white blood cell count 5,500, platelets 498,000. Glucose 107, BUN 9, creatinine 0.7, sodium 140, potassium 3.5, chloride 100, CO2 29, calcium 8.9. ASSESSMENT/PLAN This 31-year-old gentleman with a history of transverse colon carcinoma, incompletely resected due to involvement in the retroperitoneum, presented with recurrent disease last year. He was treated with chemotherapy, radiation therapy, followed by immunotherapy, with evidence of failure. He now has intractable pain, nausea, vomiting, dehydration, failure to thrive and evidence of progressive disease. At this point all of this was discussed with the patient in detail. I offered his [facility] supportive care, DNR, and he agrees. Will order [facility] evaluation as soon as possible. Dictated by Jefferson Escalante/lucy TD: 06/13/2016 11:49 JOB #: [id number] HISTORY AND PHYSICAL Page 1 of 1 X Javier Corona MD X HISTORY AND PHYSICAL
--- NOTE | ~2016-06-11 | CO ---
Unit #: [id number] #: [id number] Patient: KELLEY AKHTAR [id number] [address] [place], [place] [address] [id number] MR#: [id number] NAME: KELLEY AKHTAR ROOM: 216 Age: 31 Sex: M Admission Date: 06/11/2016 : 1985 Attending Physician: Ines Vazquez M.D. Primary Care Physician: Robin Bowen M.D. Consultation Date: 06/12/2016 CONSULTATION REPORT BRIEF HISTORY The patient is a 31-year-old gentleman with advanced colon cancer, who presents with nausea, vomiting, and hematemesis over the last 24 hours. He has had normal bowel function. Complaining of diffuse abdominal pain, but not out of proportion to what he has recently had. He has been hemodynamically stable in the emergency room. PAST MEDICAL HISTORY Hypertension. He has NG tube. HOME MEDICATIONS Phenergan, Roxicodone, Colace. ALLERGIES He has multiple allergies. SOCIAL HISTORY Does smoke. No alcohol. FAMILY HISTORY Negative for GI malignancy. REVIEW OF SYSTEMS No cardiopulmonary complaints at this time. Else, 10 systems reviewed and negative. PHYSICAL EXAMINATION GENERAL: He is awake, alert, in no distress. VITAL SIGNS: Currently, afebrile with a temperature of 99.2. HEENT: Unremarkable. NECK: Supple. No JVD. Trachea midline. LUNGS: Clear to auscultation. Bilateral breath sounds symmetric. CARDIOVASCULAR: Regular rate and rhythm. ABDOMEN: Soft. It is currently diffusely tender. No rebound. No masses palpable. No hernias. EXTREMITIES: No clubbing, cyanosis, or edema. DIAGNOSTIC STUDIES LABORATORY RESULTS: Show white count 5.5, hemoglobin 10.5. Chemistries are normal. ASSESSMENT Chronic nausea, vomiting, hematemesis. Unit #: [id number] #: [id number] Patient: KELLEY AKHTAR PLAN Recommend proton pump inhibitors. We will treat with medical means with Reglan and Zofran. We will follow hemoglobin. Dictated by... Aric Cabrera M.D. RASHI/bekah TD: 06/12/2016 12:14 JOB #: [id number] CONSULTATION REPORT Page 1 of 1 X Aric Cabrera MD CONSULTATION REPORT
--- NOTE | ~2016-06-11 | A ---
[facility] Nutrition Therapy DATE: 06/13/16 Patient: KELLEY AKHTAR Physician: VIV Address: [address] Room/Bed: [address] [place] [address], Zip: [place] [address] Admit Date: 06/11/16 Date of : [birth year] Height: 6 3 Weight: 129 58.96 NUTRITIONAL ASSESSMENT: REASON: LOW BMI + CONSULT RE: ENTERAL NUTRITION SUPPORT PT IS 31 Y.O. MALE ADMITTED FOR INTRACTABLE N/V PMH: STAGE IV COLON CANCER S/P (R) HEMICOLECTOMY, CHEMOTHERAPY & RADIATION, ANEMIA, HTN, PEG IN PLACE 2' GASTRET OUTLET PARTIAL OBSTRUCTION Anthropometrics: 6'3", WT: 130# (59 KG), BMI: 16.2, 66%IBW Labs: ALB: 3.4 Meds: NACL, KCL, PHENERGAN, REGLAN, PROTONIX I/O & Bowel function: 530/700 Skin Integrity: PEG IN PLACE Estimated Nutrition Needs: [id number] KCAL (35-40 KCAL/KG BW) 71-106 G PRO (1.2-1.8 G PRO/KG BW) FLUIDS CONSISTENT W/KCAL NEEDS OR MANAGE PER MD Assessment: CHART REVIEWED AND EVENTS NOTED. PT SEEN FOR LOW BMI + CONSULT. RD ASSESSED PT ON 06/03/16 FOR LOW BMI + ENTERAL NUTRITION CONSULT. PT REPORTS FAIR/GOOD PO INTAKE AND APPETITE, REPORTS HIS PO INTAKE IS "INCONSISTENT". PT REPORTS WEIGHT LOSS SINCE LAST SEPTEMBER 2015-NOTES UBW IS ~200#. WEIGHTS HAVE TRENDED DOWN SINCE (167# IN DECEMBER, 149# IN FEBRUARY 2016 AND 145# IN APRIL 2016). PT ALSO RECEIVES ENTERAL NUTRITION VIA PEG (PT REPORTS A NESTLE PRODUCT?). THIS RD ENCOURAGED INCREASED KCAL AND PROTEIN NEEDS (SMALL FREQUENT MEALS) AT HOME, PT AGREED. PT REPORTED NO DIET QUESTIONS AT THIS TIME. RD TO FOLLOW. SEE RECOMMENDATIONS BELOW. Dx: MALNUTRITION R/T PMH, CURRENT CONDITION AEB LOW BMI OF 16.2, 66%IBW, ~70# WEIGHT LOSS SINCE SEPTEMBER 2015. Intervention: 1. NPO 2. PEG 3. RD CONSULT Monitoring, Evaluation and Goals: 1. ENTERAL NUTRITION; PROVIDE ~80-100% ESTIMATED NUTRIENT NEEDS AT GOAL X 24 HOURS 2. ORAL INTAKE; ADVANCE DIET AND CONSUME/TOLERATE ~50% MEALS W/NO C/O N/V/D 3. WEIGHTS; PROMOTE GRADUAL WEIGT GAIN; PREVENT FURTHER WEIGHT LOSS 4. GI; PROMOTE REGULAR GI FUNCTION [facility] Nutrition Therapy DATE: 06/13/16 Patient: KELLEY AKHTAR Physician: VIV Address: [address] Room/Bed: [address] [place] [address], Zip: [place] [address] Admit Date: 06/11/16 Date of : [birth year] Height: 6 3 Weight: 129 58.96 MONITOR: -WEIGHTS -PLANS FOR SUPPORT (PEG IN PLACE) -DIET ADVANCEMENT/PO INTAKE/APPETITE -LABS Recommendations: 1. ONCE MEDICALLY FEASIBLE AND PT ABLE TO TOLERATE PO INTAKE, ADVANCE DIET TO REGULAR + 6 SMALL MEALS 2. ORDER STRAWBERRY ENSURE ENLIVE TID W/MEALS or ENSURE CLEAR TID (IF PT ON CLEAR LIQUID DIET) ONCE DIET ADVANCES, FOR ADDITIONAL PROTEIN AND KCAL 3. RECOMMEND TO BEGIN ALTERNATIVE NUTRITION SUPPORT OF JEVITY 1.5 @ 20 ML/HR, ADVANCE 10 ML q 6 HOURS TO GOAL RATE OF 60 ML/HR -PROVIDES 2160 KCAL, 92 G PRO, 1094 ML FREE H20 ADD FREE H20 FLUSHES OF 180 ML q 4 HOURS TO MEET PT'S CURRENT ESTIMATED FLUID NEEDS OR MANAGE PER MD IF BOLUS FEEDS DESIRED, RECOMMEND JEVITY 1.5/6 CANS DAILY -PROVIDES 2160 KCAL, 92 G PRO, 1094 ML FREE H20 ADD FREE H20 FLUSHES OF 180 ML AFTER EACH FEEDING [address] WILL F/U PER PROTOCOL PT IS MOD/SEVERELY COMPROMISED Respectfully, DEMAR REYES MS, RD, LD [employer] [facility] cc: client file
[~2016-06-11 18:52] MED LIST changes: +DURAGESIC1 EAC1 TD; +OLANZAPINE10 MG PO; +ROXICODONE15 MG PO
[2016-06-11 21:06] LABS: BASOPHIL% 0.3 % (0-2.5); EOSINOPHIL# 0.1 X10e3 (0-0.7); EOSINOPHIL% 1.3 % (0.0-7.0); HEMATOCRIT 32.9 % (38.0-50.0); HEMOGLOBIN 10.5 gm/dL (13.0-16.0); LYMPHOCYTE# 0.7 X10e3 (1.0-3.5); LYMPHOCYTE% 12.3 % (17.0-45.0); MEAN CELL VOLUME 77.9 FL (83-96); MEAN CORPUSCULAR HEMOGLOBIN 24.9 PG (28-34); MEAN CORPUSCULAR HGB CONC 31.9 g/dL (30-36); MEAN PLATELET VOLUME 7.2 FL (6.5-11.5); MONOCYTE# 0.4 X10e3 (0-1.0); MONOCYTE% 7.2 % (3.0-12.0); NEUTROPHIL# 4.3 X10e3 (1.5-7.1); NEUTROPHIL% 78.9 % (40-75); PLATELET COUNT 498 X10e3 (140-420); RED BLOOD COUNT 4.22 X10e (3.90-5.60); RED CELL DISTRIBUTION WIDTH 16.5 % (11.0-15.5); WHITE BLOOD COUNT 5.5 X10e3 (4.0-10.5)
[2016-06-11 21:07] LABS: DIFF IND NO
[2016-06-11 21:59] LABS: ALBUMIN SERUM 3.4 g/dL (3.5-5.0); BILIRUBIN, DIRECT 0.1 mg/dL (0.0-0.2); BILIRUBIN,INDIRECT 0.4 mg/dL (0.0-0.9); BILIRUBIN,TOTAL 0.5 mg/dL (0.2-2.0); BUN/CREATININE RATIO 12.85; CALCIUM SERUM 8.9 mg/dL (8.4-10.2); CREATININE SERUM 0.7 mg/dL (0.6-1.4); GLOM FILT RATE Estimated 144.8 mL/min (>60); POTASSIUM 3.5 mmol/L (3.5-5.1); PROTEIN TOTAL SERUM 7.8 g/dL (6.0-8.3)
== END 2016-06-13 23:27 | DRG 374 ==
LOC: CED 18:52 → CEDOF 22:20 → C2A 06-12 13:55
PROVIDERS: Emergency Medicine
DX: C18.4 Malignant neoplasm of transverse colon (principal); E43 Unspecified severe protein-calorie malnutrition; C78.6 Secondary malignant neoplasm of retroperitoneum and peritoneum; E86.0 Dehydration; I10 Essential (primary) hypertension; Z66 Do not resuscitate; Z51.5 Encounter for palliative care; D64.9 Anemia, unspecified; R62.7 Adult failure to thrive; G89.3 Neoplasm related pain (acute) (chronic); F17.210 Nicotine dependence, cigarettes, uncomplicated
CPT/HCPCS: 36415; 80048; 80076; 82150; 83690; 85025; 96361; 96374; 96375; 99285; C9113; J0595; J1170; J1650; J2765

== ENCOUNTER 2016-07-06 08:45 | Emergency (ER) | payer OTHER ==
[2016-07-06 10:32] LABS: BASOPHIL% 0.2 % (0-2.5); HEMATOCRIT 32.8 % (38.0-50.0); HEMOGLOBIN 10.4 gm/dL (13.0-16.0); LYMPHOCYTE# 0.6 X10e3 (1.0-3.5); LYMPHOCYTE% 6.3 % (17.0-45.0); MEAN CELL VOLUME 76.7 FL (83-96); MEAN CORPUSCULAR HEMOGLOBIN 24.4 PG (28-34); MEAN CORPUSCULAR HGB CONC 31.9 g/dL (30-36); MEAN PLATELET VOLUME 7.2 FL (6.5-11.5); MONOCYTE# 0.5 X10e3 (0-1.0); MONOCYTE% 5.3 % (3.0-12.0); NEUTROPHIL# 8.2 X10e3 (1.5-7.1); NEUTROPHIL% 88.2 % (40-75); PLATELET COUNT 666 X10e3 (140-420); RED BLOOD COUNT 4.27 X10e (3.90-5.60); RED CELL DISTRIBUTION WIDTH 16.6 % (11.0-15.5); WHITE BLOOD COUNT 9.3 X10e3 (4.0-10.5)
[2016-07-06 10:33] LABS: DIFF IND NO
[2016-07-06 10:58] LABS: ALBUMIN SERUM 3.2 g/dL (3.5-5.0); BILIRUBIN, DIRECT 1.4 mg/dL (0.0-0.2); BILIRUBIN,INDIRECT 1.1 mg/dL (0.0-0.9); BILIRUBIN,TOTAL 2.5 mg/dL (0.2-2.0); BUN/CREATININE RATIO 17.5; CALCIUM SERUM 9.4 mg/dL (8.4-10.2); CREATININE SERUM 0.8 mg/dL (0.6-1.4); GLOM FILT RATE Estimated 137.1 mL/min (>60); PROTEIN TOTAL SERUM 8.2 g/dL (6.0-8.3)
== END 2016-07-06 14:53 | disposition home or self-care (01) ==
LOC: CED 08:45
PROVIDERS: Emergency Medicine
DX: R10.84 Generalized abdominal pain (principal); R11.2 Nausea with vomiting, unspecified; C18.9 Malignant neoplasm of colon, unspecified; I10 Essential (primary) hypertension; F17.200 Nicotine dependence, unspecified, uncomplicated; Z88.5 Allergy status to narcotic agent; Z88.8 Allergy status to other drugs, medicaments and biological substances
CPT/HCPCS: 36415; 80048; 80076; 82150; 83690; 85025; 96361; 96374; 96375; 96376; 99285; J1170; J2765